=== PATIENT | female | born 1980 | race Caucasian/White ===

== ENCOUNTER → 2021-06-28 14:50 | Outpatient (BNVA) | payer BC, SELFPAY | PROVIDERS: Family Provider Family Medicine; PCP Family Medicine; Visit Provider Internal Medicine | DX: E61.1 Iron deficiency (principal); R19.5 Other fecal abnormalities; N92.0 Excessive and frequent menstruation with regular cycle | CPT/HCPCS: 82607; 82784; 83516; 83550; 84443; 85025 ==

== ENCOUNTER 2021-07-26 07:54 | Day surgery (SDC) | payer BC, SELFPAY ==
[2021-07-22 13:31] VITALS: BMI 47.4
--- NOTE | 2021-07-26 07:40 | W.PM.OPSFHP ---
Same Day Surgery H&P Indication for Procedure/HPI DATE OF PROCEDURE: July 26, 2021 CHIEF COMPLAINT/INDICATIONFOR SURGICAL PROCEDURE: FOBT positive and iron deficiency anemia PREOP DIAGNOSIS: FOBT positive and iron deficiency anemia PLANNED PROCEDURE: Operation Date: 07/26/21 09:30 Proposed Procedures p EGD and colonoscopy [id number],R19.5(Not Applicable) - Gerard Talbot MD s Colonoscopy(Not Applicable) - Gerard Talbot MD Medications/Allergies* Home Medications Medication Instructions Recorded Confirmed Type ascorbate calcium (vitamin C) 500 500 mg PO DAILY 06/15/21 07/22/21 History mg tablet cholecalciferol (vitamin D3) 50 50 mcg PO DAILY 06/15/21 07/22/21 History mcg (2,000 unit) capsule citalopram 40 mg tablet (Celexa) 40 mg PO DAILY 06/15/21 07/22/21 History ferrous sulfate 325 mg (65 mg 325 mg PO DAILY 06/15/21 07/22/21 History iron) tablet esomeprazole magnesium 20 mg 20 mg PO DAILY 06/28/21 07/22/21 History capsule,delayed release (Nexium) Allergies/Adverse Reactions Allergy/AdvReac Type Severity Reaction Status Date / Time Penicillins Allergy Severe Anaphylaxis Verified 06/28/21 13:52 amoxicillin Allergy rash Verified 06/28/21 13:52 CONTRAST MEDIA Allergy ALGY-Hives Uncoded 07/22/21 13:29 Pertinent History/Comorbid Conditions* Family History (Updated 06/28/21 @ 13:58 by Jahaira Ugarte) Diabetes Father Brother CAD (coronary artery disease) Father Hypertension Father Stroke Father Social History Smoking and tobacco status: never smoked Alcohol intake: never Pertinent Exam Findings alert, oriented x 3, clear to auscultation bilaterally, regular rate & rhythm, operative site marked and procedure specific exam findings Recommendations Surgery/Procedure today Coding Level of Care Code Acute Sales And Marketing Administrator for Cassie Elder
[2021-07-26 08:35] VITALS: BP 142/88; PULSE 72; RESP 18; TEMP 36.5; O2SAT 100
[2021-07-26] MEDS: sodium chloride 0.9% 1,000 ML 30 ML IV (08:48)
--- NOTE | 2021-07-26 09:56 | ANES.PREANE2 ---
Pre-Anesthetic Assessment Height/Weight: Height 1.68 m Weight 133.356 kg Temp Pulse Resp BP Pulse Ox 97.7 F 72 18 142/88 100 07/26/21 08:35 07/26/21 08:35 07/26/21 08:35 07/26/21 08:35 07/26/21 08:35 Preop Diagnosis: fe def/heme pos Operation Date: 07/26/21 09:30 Proposed Procedures p EGD and colonoscopy [id number],R19.5(Not Applicable) - Gerard Talbot MD s Colonoscopy(Not Applicable) - Gerard Talbot MD Familial anesthetic complications: None Was Beta Tabby taken within 24 hours: N/A Was Clonidine taken within 24 hours: N/A Last intake: Intake Last Liquid Date 07/25/21 Last Liquid Time 22:30 Last Solid Date 07/24/21 Last Solid Time 18:00 Social No alcohol and No tobacco Exam alert, oriented x 3, clear to auscultation bilaterally and regular rate & rhythm Airway Submandibular: within normal limits Cervical ROM: within normal limits Mallampati: Class II Dentition: full History/ROS No significant complaints Pulmonary None reported CV/HEM Anemia None reported Hepatic None reported GI Gastroesophageal Reflux Disease Metabolic Morbid Obesity [facility] [place] None reported Neuropsych None reported Anesthetic Plan ASA status: 3 (40 year old morbidly obese female with anemia, occult blood in stool) Anesthesia: Anesthesia Evaluation and General Other: I discussed with the patient risks, goals, and benefits of MAC and general anesthesia. We discussed spectrum of MAC anesthesia including conversion to general as well as possibility of recall of intraoperative stimuli including discomfort/pain. Patient agrees to proceed with MAC. Risk of > 500 ml blood loss (7ml/kg in children): No Medications/Allergies Home Medications Medication Instructions Recorded Confirmed Last Taken Type ascorbate calcium (vitamin C) 500 500 mg PO DAILY 06/15/21 07/26/21 07/24/21 History mg tablet cholecalciferol (vitamin D3) 50 50 mcg PO DAILY 06/15/21 07/26/21 07/24/21 History mcg (2,000 unit) capsule citalopram 40 mg tablet (Celexa) 40 mg PO DAILY 06/15/21 07/26/21 07/24/21 History ferrous sulfate 325 mg (65 mg 325 mg PO DAILY 06/15/21 07/26/21 07/24/21 History iron) tablet esomeprazole magnesium 20 mg 20 mg PO DAILY 07/26/21 07/26/21 07/24/21 History tablet,delayed release (Nexium 24HR) Allergies Allergy/AdvReac Type Severity Reaction Status Date / Time Penicillins Allergy Severe Anaphylaxis Verified 06/28/21 13:52 amoxicillin Allergy rash Verified 06/28/21 13:52 CONTRAST MEDIA Allergy ALGY-Hives Uncoded 07/22/21 13:29 Current Medications Generic Name Dose Route Start Last Admin Trade Name Freq PRN Reason Stop Dose Admin Sodium Chloride 1,000 mls @ 30 mls/hr 07/26/21 08:30 07/26/21 08:48 Sodium Chloride 0.9% IV 30 mls/hr .Q24H ROSAMARIA Administration PFSH Anesthesia Family History (Updated 06/28/21 @ 13:58 by Jahaira Ugarte) Father Diabetes Hypertension Stroke CAD (coronary artery disease) Brother Diabetes Social History (Updated 06/28/21 @ 13:58 by Jahaira Ugarte) Smoking and tobacco status: never smoked Alcohol intake: never Data Anesthesia Cardiac Studies: No Data to Display
--- NOTE | 2021-07-26 11:01 | ANE.PACU2 ---
Documented by User: Vladimir Hernandez CRNA 07/26/21 11:01 Inpatient post-anesthesia follow up: Airway intact: Yes Vital signs: Temperature 97.7 F Pulse Rate 72 Respiratory Rate 18 Blood Pressure 142/88 Pulse Oximetry 100 Oxygen Delivery Me thod Oxygen Flow Rate Fraction of Inspir ed Oxygen Hydration adequate: Yes Nausea and vomiting: No Pain level: 1 Mental status: Baseline
[2021-07-26 11:05] VITALS: BP 120/67; PULSE 110; RESP 12; TEMP 36.3; O2SAT 96
[2021-07-26 11:16] VITALS: BP 123/61; PULSE 97; RESP 16; O2SAT 96
[2021-07-28 06:46] LABS: H. Pylori / CLO Test Negative
== END 2021-07-26 11:40 | disposition home or self-care (01) ==
PROVIDERS: Family Provider Family Medicine; Visit Provider Internal Medicine
PROC: 0DJ08ZZ Inspection of Upper Intestinal Tract, Via Natural or Artificial Opening Endoscopic (ICD-10-PCS; CPT 43235; principal; 2021-07-26 09:30)
PROC: 0DJD8ZZ Inspection of Lower Intestinal Tract, Via Natural or Artificial Opening Endoscopic (ICD-10-PCS; CPT 45378; 2021-07-26 09:30)
DX: R19.5 Other fecal abnormalities (principal); D50.9 Iron deficiency anemia, unspecified; Z82.49 Family history of ischemic heart disease and other diseases of the circulatory system; Z83.3 Family history of diabetes mellitus; Z82.3 Family history of stroke; K21.9 Gastro-esophageal reflux disease without esophagitis; E66.01 Morbid (severe) obesity due to excess calories; Z68.42 Body mass index [BMI] 45.0-49.9, adult; K44.9 Diaphragmatic hernia without obstruction or gangrene; K29.70 Gastritis, unspecified, without bleeding
CPT/HCPCS: 43239; 45378; 87077; J2704; J7030

== ENCOUNTER 2022-02-22 08:07 | Emergency (ER) | payer BC, SELFPAY ==
[2022-02-22 08:11] VITALS: BP 131/71; PULSE 85; RESP 16; TEMP 36.9; O2SAT 100; BMI 43.2
--- NOTE | 2022-02-22 08:18 | ED_ITS ---
HPI - URI/Sore Throat General: Chief Complaint: Upper Respiratory Infection Stated Complaint: sore throat Time Seen by Provider: 02/22/22 08:09 Source: patient Mode of arrival: ambulatory Limitations: no limitations History of Present Illness: Patient is a 41-year-old female who presents to the ED today for concern of possible allergic reaction. Patient states she was diagnosed with strep tonsillitis yesterday. He states her tonsils have been swollen and painful over the past few days. She states she was placed on azithromycin yesterday (secondary to penicillin allergy). Today she feels like her uvula is swollen and questions whether this is an allergic reaction to the azithromycin. Patient is still able to eat and drink. She is speaking normally. No drooling or tripoding. MD elicited complaint: sore throat Onset (ago): day(s) Consistency: constant Severity: moderate Able to tolerate fluids by mouth: Yes Exacerbating factors: swallowing Relieving factors: nothing Context: other (diagnosed with strep yesterday) Associated symptoms: Deny chills, chest pain, fever(s), headache(s) or nasal congestion Treatments prior to arrival: antibiotics Review of Systems Const: Denies: fever(s), chills, body aches, fatigue or malaise ENMT: Reports: throat pain, uvular edema, enlarged tonsils and odynophagia; Denies: hoarseness, swelling of lips/tongue, oral sores, nasal discharge or nasal congestion Card: Denies: chest pain Resp: Denies: dyspnea Musc: Denies: neck pain Neuro: Denies: headache(s) PFS ED PFSH: Family History Father Diabetes Hypertension Stroke CAD (coronary artery disease) Brother Diabetes Social History Smoking and tobacco status: never smoked Alcohol intake: never Physical Exam Const: COMMON NORMALS: no acute distress, patient oriented x3, no limitations and alert GENERAL APPEARANCE: cooperative NUTRITIONAL APPEARANCE: obese ORIENTATION/CONSCIOUSNESS: Yes awake, Yes oriented to person, Yes oriented to place and Yes oriented to time HENMT: COMMON NORMALS: normocephalic and atraumatic HEAD & SCALP: normal to inspection, normocephalic and atraumatic FACE & SINUS: normal facial exam MOUTH: Normal oral and palatal mucosa present, lip normal, tongue normal and other (no angioedema noted) TEETH & GINGIVA: Yes fair dentition THROAT: uvula midline, abnormal tonsil bilateral (consistent with known diagnosis of strep) erythema, exudates and hypertrophy and uvular edema; no peritonsillar mass Eye: GENERAL EYE: appearance normal, both eyes and all related structures Neck/C-Spine: COMMON NORMALS: full ROM and no lymphadenopathy GENERAL: Yes normal visual inspection, No anterior neck swelling, No tracheal deviation and No submandibular swelling Resp: COMMON NORMALS: normal respiratory effort Neuro: COMMON NORMALS: patient oriented x3 SENSORIUM/ORIENTATION: Yes alert, Yes oriented to person, Yes oriented to place and Yes oriented to time Course Vital Signs: Vital signs: Vital Signs Temperature 98.4 F 02/22/22 08:11 Pulse Rate 85 02/22/22 08:11 Respiratory Rate 16 02/22/22 08:11 Blood Pressure 131/71 02/22/22 08:11 Pulse Oximetry 100 02/22/22 08:11 Oxygen Delivery Me thod 02/22/22 08:11 MDM - URI/Sore Throat Medical Decision Making Patient on exam has bilateral tonsillar hypertrophy, erythema, and exudates as well as some mild uvulitis consistent with her recent diagnosis of strep. No angioedema noted. No other findings that would make me suspicious for medication reaction. Patient is not having any difficulty with speech. She is able to eat and drink normally. She is controlling her secretions. No tripoding, stridor, or other concerning findings for epiglottitis, MEDICAL OFFICE SCHEDULER, retropharyngeal abscess, or deep space infection. Patient was given IM dexamethasone and recommend she continue and finish her azithromycin for treatment of strep. Return to ED precautions given. Discharge Plan Discharge Patient Disposition: Home Clinical Impression: Uvulitis, Streptococcal tonsillitis Condition: Stable Prescriptions: No Action Mounjaro 2.5 mg/0.5 mL pen injector SUBCUT citalopram [Celexa] 40 mg tablet 40 mg PO DAILY ascorbate calcium (vitamin C) 500 mg tablet 500 mg PO DAILY cholecalciferol (vitamin D3) 50 mcg (2,000 unit) capsule 50 mcg PO DAILY esomeprazole magnesium 40 mg capsule,delayed release(DR/EC) 40 mg PO DAILY Qty: 90 3RF ferrous gluconate 324 mg (38 mg iron) tablet 324 mg PO BID Qty: 60 3RF Discharge Orders: Discharge ED (Routine); Ordered 02/22/22 Ordered By: Phyllis Butler Referrals: Xi Peraza PA-C [Primary Care Provider] - Coding Level of Care Code ED Analytical Research Program Manager for Cassie Elder
[2022-02-22] MEDS: dexamethasone 10 mg/mL INJ 8 MG IM (08:31)
[2022-02-22 08:44] VITALS: BP 112/67; PULSE 83; RESP 16; TEMP 36.9; O2SAT 99
== END 2022-02-22 08:45 | disposition home or self-care (01) ==
PROVIDERS: Emergency Provider Physician Assistant; PCP Physician Assistant
DX: K12.2 Cellulitis and abscess of mouth (principal); J03.00 Acute streptococcal tonsillitis, unspecified
CPT/HCPCS: 96372; 99283; J1100

== ENCOUNTER → 2022-09-26 14:33 | Outpatient (BNVA) | payer BC, SELFPAY | PROVIDERS: PCP Physician Assistant; Referring Provider Nurse Practitioner Family; Visit Provider Nurse Practitioner Family | DX: M25.571 Pain in right ankle and joints of right foot (principal); M79.671 Pain in right foot; W22.09XA Striking against other stationary object, initial encounter | CPT/HCPCS: 73630 ==

== ENCOUNTER → 2025-01-13 10:25 | Outpatient (BNVA) | payer OTHER, SELFPAY | PROVIDERS: Visit Provider Nurse Practitioner Family | DX: E61.1 Iron deficiency (principal); Z86.39 Personal history of other endocrine, nutritional and metabolic disease; E66.811 Obesity, class 1; Z68.32 Body mass index [BMI] 32.0-32.9, adult | CPT/HCPCS: 80053; 83036; 83550; 84443; 85025 ==